=== PATIENT | male | born 1970 | race Caucasian/White ===

== ENCOUNTER 2024-07-22 05:47 | Day surgery (SDC) | payer BC ==
[2024-07-22 06:28] VITALS: RESP 18
[2024-07-22 06:57] LABS: ALBUMIN 4.3 g/dL (3.5-5.0); ANION GAP 8.6 MEQ/L (5-15); BILIRUBIN,TOTAL 0.7 mg/dL (0.2-1.3); Calcium 9.4 mg/dL (8.4-10.2); Creatinine 1 0.63 mg/dL (0.66-1.25); EST GLOMERULAR FILTRATION RATE 114.5 ML/MIN; Potassium 4.1 mmol/L (3.5-5.1)
[2024-07-22] MEDS ORDERED: propofoL IV ONE ×2 (07:28→07:34)
[2024-07-22 08:23] VITALS: TEMP 97; O2SAT 97
[2024-07-22 08:39] VITALS: BP 120/81; PULSE 68
--- NOTE | 2024-07-23 13:02 | OP ---
SURGERY DATE/TIME: 07/22/24 [id number] PREOPERATIVE DIAGNOSIS: Screening exam. POSTOPERATIVE DIAGNOSIS: Multiple colon polyps. PROCEDURE: Colonoscopy with hot snare polypectomies x4. SURGEON: Lei Payan MD ANESTHESIA: Medication given by the anesthesia department. HISTORY: The patient is a 54-year-old white male patient presenting now for a screening colonoscopy. The patient was apprised of the risks of the procedure including risk of perforation, phlebitis, untoward reaction to medication, bleeding, and missed lesions. The patient verbalized his understanding and desired to have the procedure performed. DESCRIPTION OF PROCEDURE AND FINDINGS: Patient was given medication by the anesthesia department. He had continuous pulse oximetry, ECG monitoring, and intermittent blood pressure monitoring during the examination. He was placed in the left lateral decubitus position. Digital rectal examination was performed and revealed normal anal sphincter tone, no masses, and a normal prostate. The flexible Olympus videocolonoscope was used to intubate the rectum. A view of the colon was developed sequentially to the cecum. Upon insertion and withdrawal was noted 2 polyps in the distal descending colon which were removed using hot polypectomy snare technique. There was a third polyp at approximately 25 cm depth insertion that was approximately 2 cm in diameter. This was removed also using the hot polypectomy snare technique and retrieved for pathologic evaluation. There was a fourth smaller one approximately 0.7 cm in size removed using similar technique. No other mucosal lesions being found, the scope was removed. The patient tolerated the procedure well and was sent back to outpatient recovery in good condition. The prep was noted to be fair.
== END 2024-07-22 08:49 | disposition home or self-care (01) ==
LOC: SDC 05:47
PROVIDERS: ATTEND Family Medicine
DX: Z12.11 Encounter for screening for malignant neoplasm of colon (principal); D12.4 Benign neoplasm of descending colon; D12.5 Benign neoplasm of sigmoid colon
CPT/HCPCS: 36415; 80053; 88305; 93005; J2704